=== PATIENT | female | born 1955 | race Caucasian/White ===

== ENCOUNTER 2021-05-22 01:59 | Day surgery (SDC) | payer BC, SELFPAY ==
[2021-05-11 08:38] VITALS: BMI 37.6
--- NOTE | 2021-05-21 13:27 | WPDANESEPPF ---
Anes - Initial Pre Proc Eval Procedure: Operation Date: 05/22/21 10:30 Proposed Procedures p Screening Colonoscopy - Ranjeet Little MD Date/Time: 05/21/21 13:27 Surgeon: Ranjeet Little MD Pre Op Diagnosis: hx of colon polyps Patient Data Age: 65 Gender: F Height: 1.7 m Weight: 109 kg Allergies Allergy/AdvReac Type Severity Reaction Status Date / Time prochlorperazine Allergy Mild Muscle Verified 05/22/21 09:36 Spasms iohexol Allergy Unknown Fever Verified 05/22/21 09:36 [From CONTRAST - CT, XRAY] mold AdvReac DROWSINESS Verified 05/22/21 09:36 Home Medications Medication Instructions Recorded Confirmed Type No Home Medications 05/11/21 05/22/21 History Patient hx anesthesia problems: none Family hx anesthesia problems: none PMFSH Past Medical History Medical History (Updated 05/22/21 @ 09:49 by Ranjeet Little MD) Abnormal ultrasound of breast Abnormal uterine bleeding Arthritis Body mass index [BMI] 38.0-38.9, adult (10/02/17) Dietary counseling and surveillance (05/29/18) Eczema Elevated fasting glucose Encounter for screening colonoscopy Hx of melanoma of skin Leiomyoma Morbid obesity with BMI of 40.0-44.9, adult LARISA (obstructive sleep apnea) Palpitations STATES WAS YEARS AGO- NO FINDINGS ON HOLTER MONITOR. NO FURTHER PROBLEMS Psoriasis Screening for breast cancer Screening for diabetes mellitus Screening for thyroid disorder Screening, lipid Vitamin D deficiency Weight gain Surgical History Surgical History H/O: hysterectomy Family History Family History Mother Cerebrovascular accident Father Carcinoma of colon Family history of type 2 diabetes mellitus Sibling Family history of malignant neoplasm of testis Other Diabetes mellitus Family history of cardiovascular disease Social History Social History (Updated 12/14/20 @ 14:42 by Fariba Elliott CMA) Smoking status: Never smoker Second hand tobacco smoke exposure: No Alcohol intake: never Substance use: never Substance use type: does not use Living arrangements: with family 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 Gender identity (if verbalized by the patient): Male Spiritual care concerns: No Anes - Eval Final PreProcedure Day of Procedure 05/21/21 13:27 Patient weight: obese Heart: regular rate and rhythm Lungs: clear to auscultation and normal air movement Airway: Mallampati scale class II Neurological: alert and oriented Last oral intake: >/= 8 hours ASA classification: III Emergent: no Anesthetic plan: proceed Anesthesia type and monitoring: general GIVS and standard monitoring Informed Consent: The patient's anesthetic plan and its attendant risks and benefits were discussed with the patient/family/POA. Questions were solicited and answers provided to the satisfaction of the patient/family/POA.
[2021-05-22] MEDS: LACTATED RINGERS 1,000 ML 150 ML IV CONT (09:44)
[2021-05-22 09:45] VITALS: BP 150/81; PULSE 94; RESP 17; TEMP 36.6; O2SAT 98
--- NOTE | 2021-05-22 09:48 | WPDGICN ---
Assessment and Plan Assessment and plan (1) History of colon polyps: Code(s): Z86.010 - Personal history of colonic polyps Status: Acute Assessment and Plan: Patient has a history of colon polyp removed in 2013. Plan is for surveillance colonoscopy at this time. Further recommendations will be given after endoscopy. High-fiber diet is encouraged because of her abdominal complaints. This will be reassessed at the time of endoscopy. GI Consult Note Consult date/time: 05/22/21 09:48 HPI: Smiley Rhoades is a 65 year old female Presents for screening colonoscopy. Patient has a history of colon polyps identified by endoscopy 2013 performed by . patient states her current weight appetite bowel movements are normal. She sometimes will no gassiness. Occasionally will have a vague abdominal discomfort. But in general is done well. Her she has had no bleeding. Her family history is noncontributory. Review of Systems Review of Systems: All systems reviewed & are unremarkable except as noted in HPI and below PMFSH Past Medical History Medical History (Updated 05/22/21 @ 09:49 by Ranjeet Little MD) Abnormal ultrasound of breast Abnormal uterine bleeding Arthritis Body mass index [BMI] 38.0-38.9, adult (10/02/17) Dietary counseling and surveillance (05/29/18) Eczema Elevated fasting glucose Encounter for screening colonoscopy Hx of melanoma of skin Leiomyoma Morbid obesity with BMI of 40.0-44.9, adult LARISA (obstructive sleep apnea) Palpitations STATES WAS YEARS AGO- NO FINDINGS ON HOLTER MONITOR. NO FURTHER PROBLEMS Psoriasis Screening for breast cancer Screening for diabetes mellitus Screening for thyroid disorder Screening, lipid Vitamin D deficiency Weight gain Surgical History Surgical History H/O: hysterectomy Family History Family History Mother Cerebrovascular accident Father Carcinoma of colon Family history of type 2 diabetes mellitus Sibling Family history of malignant neoplasm of testis Other Diabetes mellitus Family history of cardiovascular disease Social History Social History (Updated 12/14/20 @ 14:42 by Fariba Elliott CMA) Smoking status: Never smoker Second hand tobacco smoke exposure: No Alcohol intake: never Substance use: never Substance use type: does not use Living arrangements: with family Additional occupation/education comments: manager pediatric Gender identity (if verbalized by the patient): Male Spiritual care concerns: No Meds Home Medications and Allergies Home Medications Medication Instructions Recorded Confirmed Type No Home Medications 05/11/21 05/22/21 History Allergies Allergy/AdvReac Type Severity Reaction Status Date / Time prochlorperazine Allergy Mild Muscle Verified 05/22/21 09:36 Spasms iohexol Allergy Unknown Fever Verified 05/22/21 09:36 [From CONTRAST - CT, XRAY] mold AdvReac DROWSINESS Verified 05/22/21 09:36 Exam Narrative: Physical exam reveals patient be alert. Vital signs stable. HEENT exam is unremarkable. Patient is anicteric. Lungs are clear to auscultation and percussion. Heart is without murmur or extra sounds. Abdominal exam bowel sounds are present soft nontender with no hepatosplenomegaly. Digital external rectal exam is normal.
[2021-05-22 11:14] VITALS: BP 135/68; PULSE 87; RESP 25; O2SAT 99
[2021-05-22 11:24] VITALS: BP 123/74; PULSE 81; RESP 17; O2SAT 96
[2021-05-22 11:34] VITALS: BP 129/76; PULSE 69; RESP 15; O2SAT 99
== END 2021-05-22 11:45 | disposition home or self-care (01) ==
PROVIDERS: PCP Family Medicine; Visit Provider Internal Medicine Gastroenterology
PROC: 0DJD8ZZ Inspection of Lower Intestinal Tract, Via Natural or Artificial Opening Endoscopic (ICD-10-PCS; CPT 45378; principal; 2021-05-22 10:30)
DX: Z12.11 Encounter for screening for malignant neoplasm of colon (principal); K64.8 Other hemorrhoids; K63.5 Polyp of colon; D12.3 Benign neoplasm of transverse colon; M19.90 Unspecified osteoarthritis, unspecified site; L30.9 Dermatitis, unspecified; R73.01 Impaired fasting glucose; Z85.820 Personal history of malignant melanoma of skin; G47.33 Obstructive sleep apnea (adult) (pediatric); R00.2 Palpitations; E55.9 Vitamin D deficiency, unspecified; L40.9 Psoriasis, unspecified; E66.9 Obesity, unspecified; Z68.38 Body mass index [BMI] 38.0-38.9, adult
CPT/HCPCS: 45385; 88305; J2001; J2704; J7120

== ENCOUNTER 2022-05-28 08:44 | Outpatient (CLI) | payer BC, SELFPAY ==
--- NOTE | ~2022-05-28 | US_ITS ---
US abdomen complete DATE: 05/28/2022 09:42 INDICATION: Abdominal pain TECHNIQUE: Real-time imaging and Doppler analysis of the abdominal contents COMPARISON: None FINDINGS: No hepatic space-occupying mass lesion is evident. The pancreatic tail is obscured but the pancreas is otherwise unremarkable. Normal hepatopedal portal venous flow direction. Normal common bile duct caliber of 2 mm. The gallbladder is surgically absent. No renal mass lesion or hydronephrosis is detected. Right kidney measures approximately 10.1 cm lengt h, the left kidney 10.8 cm. Splenic size is within normal range. Abdominal aorta and inferior vena cava are unremarkable. IMPRESSION: Status post cholecystectomy Reviewed, dictated and finalized at [facility]. Reviewed, dictated and finalized at location [facility]. IMPRESSION: Status post cholecystectomy
== END 2022-05-28 08:45 | disposition home or self-care (01) ==
LOC: ANHIMG 08:46
PROVIDERS: PCP Family Medicine; Visit Provider Nurse Practitioner Family
DX: R10.9 Unspecified abdominal pain (principal); Z90.49 Acquired absence of other specified parts of digestive tract
CPT/HCPCS: 76700

== ENCOUNTER 2022-10-30 14:10 | Outpatient (CLI) | payer MEDICARE, BC, SELFPAY ==
--- NOTE | ~2022-10-30 | MM_ITS ---
EXAMINATION: MM screening harley BI w kamila HISTORY: Screening TECHNIQUE: Craniocaudal and mediolateral oblique 3-D tomosynthesis images were obtained and synthetic 2-D images were generated. CAD analysis was submitted and interpreted. COMPARISON: Comparison to multiple prior studies sequentially, with oldest reviewed study dated 05/09. BREAST PARENCHYMAL COMPOSITION: Breast composed of scattered areas of fibroglandular density FINDINGS: The right breast is stable without evidence for malignancy. There are are developing nodula r asymmetries centered in the upper outer quadrant of the left breast. IMPRESSION: 1. Developing nodular asymmetries centered in the upper outer quadrant of the left breast. 2. Additional mammographic views and possible breast ultrasound are recommended. BI-RADS Category 0: Incomplete: Needs additional imaging evaluation. Reviewed, dictated and finalized at location A. E[facility] AT [facility] IMPRESSION: 1. Developing nodular asymmetries centered in the upper outer quadrant of the l eft breast. 2. Additional mammographic views and possible breast ultrasound are recommended . BI-RADS Category 0: Incomplete: Needs additional imaging evaluation.
--- NOTE | ~2022-10-30 | DEXA_ITS ---
Bone Density Report Name: POLO CHILEL Age: 67 Sex: Female Ethnicity: White Date of : 1955 Indication: postmenopausal; screening for osteoporosis; parental hip fracture; hysterectomy; Referring Provider: KENYON MCFARLANE Study: Bone densitometry was performed. Exam Date: October 30, 2022 Accession number: [id number] Bone Density: Region BMD T-score Z-score Classification AP Spine(L1-L4) 1.265 2.0 3.7 Normal Femoral Neck (Left) 0.898 0.4 1.9 Normal Total Hip (Left) 1.023 0.7 1.9 Normal Femoral Neck (Right) 0.863 0.1 1.6 Normal Total Hip (Right) 1.048 0.9 2.1 Normal Total Hip Mean 1.035 0.8 2.0 Normal World Health Organization criteria for BMD impression classify patients as: Normal (T-score at or above -1.0), Osteopenia (T-score between -1.0 and -2.5), or Osteoporosis (T-score at or below -2.5). 10-year Fracture Risk: FRAX not reported because: All T-scores for Spine Total, Hip Total, Femoral Neck at or above -1.0 Clinical Information Provided by Patient: Parent has had a hip fracture Has used the following medications: Vitamin D Has the following medical conditions: Hysterectomy Patient maximum height was 67 Menopause Age: 63 No regular weight bearing exercise Drinks caffeinated beverages Onset of menses at age 15 Number of children 0 Impression: The patient has normal bone mass. The patient has risk factors, including: parental hip fracture. Discussion: BONE DENSITY IS ABOVE THE MINIMUM DESIRABLE LEVEL AT ALL SKELETAL SITES TESTED. This patient?s bone mineral density is above the minimum desirable level (T-score -1.0 or better) at all sites measured. The patient should follow a healthful lifestyle (good nutrition with adequate calcium and vitamin D, and appropriate weight-bearing exercise). Follow-Up: Consider repeating this study in 5 years or sooner if there is some new clinical indication. Reported by: DAMIÁN on 10/30/2022 2:51:00 PM. Reviewed, dictated and finalized at location A[facility]ena [facility]ANDARI
== END 2022-10-30 14:11 | disposition home or self-care (01) ==
LOC: ANHIMG 14:14
PROVIDERS: PCP Family Medicine; Visit Provider Nurse Practitioner Family
DX: Z12.31 Encounter for screening mammogram for malignant neoplasm of breast (principal); Z78.0 Asymptomatic menopausal state; R92.8 Other abnormal and inconclusive findings on diagnostic imaging of breast
CPT/HCPCS: 77063; 77067; 77080

== ENCOUNTER 2022-11-19 13:31 | Outpatient (CLI) | payer MEDICARE, BC, SELFPAY ==
--- NOTE | ~2022-11-19 | MMUS_ITS ---
EXAMINATION: MM diagnostic harley LT w kamila, US breast LT limited HISTORY: Nodular mammographic asymmetries in upper outer left breast reported on October 30, 2022 20 mammogram TECHNIQUE: Additional 3-D tomosynthesis images of left breast were performed and synthetic 2-D images were generated. CAD analysis was submitted and interpreted. High resolution upper outer quadrant and lower outer quadrant left breast ultrasound was performed. COMPARISON: October 30, 2021 bilateral screening mammogram FINDINGS: MAMMOGRAPHIC FINDINGS: 6.5 mm circumscribed opacity in the lower outer left breast (ML Tomosynthesis image , spot ML To mosynthesis image , spot CC Tomosynthesis image ). ULTRASOUND: 2:00 5 cm from nipple: 3.5 x 5 0.5 L circumscribed sonolucency consistent with simple cyst 2:00 near nipple: 5 x 6 mm cyst 3:00 4 cm from nipple: 5.5 x 6.6 x 7.1 mm cyst No suspicious mass or shadowing is detected. IMPRESSION: 1. Benign findings 2. Routine annual mammographic screening is recommended BI-RADS Category 2: Benign finding(s). Reviewed, dictated and finalized at location A. [facility] [employer]ER[employer] IMPRESSION: 1. Benign findings 2. Routine annual mammographic screening is recommended BI-RADS Category 2: Benign finding(s).
== END 2022-11-19 13:32 | disposition home or self-care (01) ==
PROVIDERS: PCP Family Medicine; Visit Provider Nurse Practitioner Family
DX: R92.8 Other abnormal and inconclusive findings on diagnostic imaging of breast (principal)
CPT/HCPCS: 76642; 77061; 77065; G0279